=== PATIENT | male | born 1960 | race Caucasian/White ===

== ENCOUNTER 2018-01-22 07:17 | Inpatient (IN) | payer BC ==
[~2018-01-22] VITALS: Ht 182.9 cm; Wt 100.3 kg
[~2018-01-22 07:17] MED LIST: CARV25TA55 PO; ENAL2.5T PO; ERGO4000 XX; FURO40TA PO; GLIP-116 PO; METF-372 PO; POTA1TAB61 PO; SIMV10TA84 PO
[2018-01-22 08:09] LABS: Basophils # (auto) 0.1 uL; Eosinophils # (auto) 0.3 uL; Lymphocytes # (auto) 1.1 uL
[2018-01-22 08:11] LABS: Basophils % (auto) 1.2 % (0.0-2.0); Eosinophils % (auto) 4.3 % (0.0-7.0); Hematocrit 46.5 % (41.0-53.0); Lymphocytes % (auto) 15.9 % (10.0-50.0); Mean Corpuscular Hemoglobin 22.6 pg (28.0-32.0); Mean Corpuscular Hgb Conc. 32.2 g/dL (32.0-36.0); Mean Corpuscular Volume 70.3 fL (80.0-100.0); Monocytes # (auto) 0.6 uL; Neutrophils % (auto) 70.6 % (37.0-80.0); Nucleated Red Blood Cells % 0.1 %; Platelet Count (auto) 189 10^3/uL (140-450); Red Blood Cells 6.62 10^6/uL (4.5-5.90); Red Cell Distribution Width 16.6 % (11.8-14.3); White Blood Cell 7.1 10^3/uL (4.4-10.8)
[2018-01-22 08:35] LABS: Albumin 3.6 g/dL (3.4-5.0); BUN/Creatinine Ratio 18.6; Bilirubin, Total 0.6 mg/dL (0.2-1.0); Calcium 8.5 mg/dL (8.5-10.1); Potassium 4.1 mmol/L (3.5-5.1); Total Protein 7.6 g/dL (6.4-8.2)
[2018-01-22] MEDS ORDERED: PIPERACILLIN-TAZOB 3.375GM 100 ML IV ONE (09:15)
[2018-01-22] MEDS ORDERED: CARV25TA55 PO (09:19)
[2018-01-22] MEDS ORDERED: TICA90TA PO (09:38)
[2018-01-22] MEDS ORDERED: SUVO1TAB2 PO (09:41)
[2018-01-22] MEDS ORDERED: LORazepam 0.5 MG TAB PO PRN (11:15)
[2018-01-22] MEDS ORDERED: VANCOMYCIN 1GM/250ML 250 ML IV ONE (11:15)
[2018-01-22] MEDS ORDERED: PROMETHAZINE HCL 25 MG/ML 1ML IV PRN (11:15)
[2018-01-22] MEDS ORDERED: VANCOMYCIN PER PHARMACY 0 MG IV SCH (11:15)
[2018-01-22] MEDS ORDERED: ACETAMINOPHEN 500 MG TAB PO PRN (11:15)
[2018-01-22] MEDS ORDERED: NITROGLYCERIN 0.4 MG SL TAB SL PRN (11:15)
[2018-01-22] MEDS ORDERED: DEXTROSE (50%) 50ML SYRG IV PRN (11:15)
[2018-01-22] MEDS: ACCU-CHEK COMFORT CURVE STRIP VI SCH ×3 (11:24→22:19)
[2018-01-22] MEDS: InsuLIN REG 1unit/0.01ml Soln (100units/ml) SC SCH ×3 (12:07→22:00)
[2018-01-22 12:20] VITALS: BP 127/86
[2018-01-22] MEDS: HYDROcodone-ACET 5/325MG TAB PO PRN ×2 (12:42→20:59)
[2018-01-22] MEDS ORDERED: PIPERACILLIN-TAZOB 3.375GM 100 ML IV SCH (15:00)
[2018-01-22] MEDS: glipiZIDE 5 MG TAB PO SCH (17:05)
[2018-01-22 17:13] VITALS: BP 125/67
[2018-01-22 19:10] LABS: Alcohol, Urine < 3.0 mg/dL (0-5); Amphetamine Screen, Urine NEGATIVE (NEGATIVE); Barbiturate Scree,Urine NEGATIVE (NEGATIVE); Benzodiazephine Screen, Urine NEGATIVE (NEGATIVE); Cannabinoid Screen, Urine POSITIVE (NEGATIVE); Cocaine Screen, Urine NEGATIVE (NEGATIVE); Opiate Scree,Urine NEGATIVE (NEGATIVE); Phencyclidine Screen, Urine NEGATIVE (NEGATIVE)
[2018-01-22 19:24] LABS: Urine Bacteria NONE SEEN /hpf (None Seen); Urine Blood Negative /uL (Negative); Urine Mucus FEW (None Seen); Urine Specific Gravity 1.025 (1.001-1.035); Urine WBC 12 /hpf (0 - 3)
[2018-01-22] MEDS: VANCOMYCIN 1GM/250ML 250 ML IV SCH (20:59)
[2018-01-22 22:00] VITALS: BP 130/79
[2018-01-22] MEDS ORDERED: PATIENTS OWN MEDICATION (Simvastatin 10 MG) PO SCH (22:00)
[2018-01-22] MEDS ORDERED: PATIENTS OWN MEDICATION (Carvedilol 1 TAB) PO SCH (22:00)
[2018-01-22] MEDS ORDERED: PATIENTS OWN MEDICATION (Glipizide 10 MG) PO SCH (22:00)
[2018-01-22] MEDS ORDERED: TICAGRELOR PO SCH (22:00)
[2018-01-22] MEDS ORDERED: SUVOREXANT 10 MG PO SCH (22:00)
[2018-01-22] MEDS: TICAGRELOR 90 MG TAB PO SCH (22:18)
[2018-01-22] MEDS: CARVEDILOL 12.5 MG TAB PO SCH (22:19)
[2018-01-22] MEDS: PRAVASTATIN SODIUM 20 MG TAB PO SCH (22:19)
[2018-01-22] MEDS: PIPERACILLIN-TAZOB 3.375GM 100 ML IV SCH (22:46)
[2018-01-22] MEDS: TEMAZEPAM 15 MG CAP PO PRN (22:47)
[2018-01-23] MEDS: PIPERACILLIN-TAZOB 3.375GM 100 ML IV SCH ×4 (04:17→21:39)
[2018-01-23 05:00] VITALS: BP 112/81
[2018-01-23 06:12] LABS: BUN/Creatinine Ratio 19.3; Calcium 8.1 mg/dL (8.5-10.1); Potassium 4.1 mmol/L (3.5-5.1)
[2018-01-23] MEDS: VANCOMYCIN 1GM/250ML 250 ML IV SCH ×2 (06:51→17:33)
[2018-01-23] MEDS: glipiZIDE 5 MG TAB PO SCH ×2 (06:54→18:00)
[2018-01-23] MEDS: ACCU-CHEK COMFORT CURVE STRIP VI SCH ×4 (06:54→21:33)
[2018-01-23] MEDS: InsuLIN REG 1unit/0.01ml Soln (100units/ml) SC SCH ×4 (06:55→21:34)
[2018-01-23] MEDS: MORPHINE SULFATE 4 MG/ML SYR/VIAL IV PRN ×3 (08:42→22:34)
[2018-01-23 09:00] VITALS: BP 114/75
[2018-01-23] MEDS ORDERED: POTASSIUM CHL 10 Meq TABLET PO SCH (10:00)
[2018-01-23] MEDS ORDERED: PATIENTS OWN MEDICATION (Potassium Chloride (Klor-Con M10) 1 TAB) PO SCH (10:00)
[2018-01-23] MEDS: CARVEDILOL 12.5 MG TAB PO SCH ×2 (10:07→21:40)
[2018-01-23] MEDS: PANTOPRAZOLE 40 MG TAB PO SCH (10:07)
[2018-01-23] MEDS: TICAGRELOR 90 MG TAB PO SCH ×2 (10:07→22:33)
[2018-01-23 13:00] VITALS: BP 114/71
[2018-01-23] MEDS: HYDROcodone-ACET 5/325MG TAB PO PRN (14:45)
[2018-01-23 17:30] VITALS: BP 117/78
[2018-01-23 20:00] VITALS: BP 114/73
[2018-01-23] MEDS: PRAVASTATIN SODIUM 20 MG TAB PO SCH (21:40)
[2018-01-23 22:04] VITALS: BP 114/73
[2018-01-23] MEDS: TEMAZEPAM 15 MG CAP PO PRN (22:33)
[2018-01-24] MEDS: VANCOMYCIN 1GM/250ML 250 ML IV SCH ×2 (03:30→13:31)
[2018-01-24] MEDS: MORPHINE SULFATE 4 MG/ML SYR/VIAL IV PRN ×3 (03:34→22:13)
[2018-01-24] MEDS: PIPERACILLIN-TAZOB 3.375GM 100 ML IV SCH ×4 (04:29→21:57)
[2018-01-24 05:46] VITALS: BP 101/72
[2018-01-24 05:49] LABS: Basophils # (auto) 0.1 uL; Eosinophils # (auto) 0.3 uL; Monocytes # (auto) 0.6 uL; White Blood Cell 6.3 10^3/uL (4.4-10.8)
[2018-01-24 05:55] LABS: Basophils % (auto) 1.3 % (0.0-2.0); Eosinophils % (auto) 5.4 % (0.0-7.0); Hematocrit 42.5 % (41.0-53.0); Hemoglobin 13.7 g/dL (13.5-17.5); Lymphocytes # (auto) 1.4 uL; Lymphocytes % (auto) 21.5 % (10.0-50.0); Mean Corpuscular Hemoglobin 22.9 pg (28.0-32.0); Mean Corpuscular Hgb Conc. 32.3 g/dL (32.0-36.0); Mean Corpuscular Volume 70.9 fL (80.0-100.0); Neutrophils # (auto) 3.9 uL; Neutrophils % (auto) 61.8 % (37.0-80.0); Nucleated Red Blood Cells % 0.2 %; Platelet Count (auto) 160 10^3/uL (140-450); Red Cell Distribution Width 16.3 % (11.8-14.3)
[2018-01-24 06:00] LABS: BUN/Creatinine Ratio 19.8; Calcium 8.3 mg/dL (8.5-10.1); Potassium 4.5 mmol/L (3.5-5.1)
[2018-01-24] MEDS: glipiZIDE 5 MG TAB PO SCH ×2 (06:41→18:25)
[2018-01-24] MEDS: InsuLIN REG 1unit/0.01ml Soln (100units/ml) SC SCH ×4 (06:41→22:00)
[2018-01-24] MEDS: ACCU-CHEK COMFORT CURVE STRIP VI SCH ×4 (06:41→21:59)
[2018-01-24 08:10] VITALS: BP 108/72
[2018-01-24] MEDS: PANTOPRAZOLE 40 MG TAB PO SCH (09:58)
[2018-01-24] MEDS: CARVEDILOL 12.5 MG TAB PO SCH ×2 (10:00→21:59)
[2018-01-24 12:24] VITALS: BP 112/73
[2018-01-24] MEDS: TICAGRELOR 90 MG TAB PO SCH ×2 (12:26→21:59)
[2018-01-24] MEDS: POTASSIUM CHL 10 Meq TABLET PO SCH ×2 (13:29→21:58)
[2018-01-24] MEDS: FUROSEMIDE 20 MG TAB PO SCH ×2 (13:30→21:58)
[2018-01-24 16:15] VITALS: BP 123/79
[2018-01-24 20:00] VITALS: BP 111/74
[2018-01-24 21:30] VITALS: BP 111/74
[2018-01-24] MEDS: PRAVASTATIN SODIUM 20 MG TAB PO SCH (21:58)
[2018-01-24] MEDS: TEMAZEPAM 15 MG CAP PO PRN (22:45)
[2018-01-25] VITALS (7 sets, daily range): BP systolic 96–126; BP diastolic 51–79
[2018-01-25] MEDS: PIPERACILLIN-TAZOB 3.375GM 100 ML IV SCH ×4 (03:32→21:41)
[2018-01-25] MEDS ORDERED: VANCOMYCIN 1GM/250ML 250 ML IV ONE ×2 (05:08→06:00)
[2018-01-25] MEDS: ACCU-CHEK COMFORT CURVE STRIP VI SCH ×4 (06:31→21:41)
[2018-01-25] MEDS: glipiZIDE 5 MG TAB PO SCH ×2 (06:32→17:00)
[2018-01-25] MEDS: InsuLIN REG 1unit/0.01ml Soln (100units/ml) SC SCH ×4 (06:32→21:48)
[2018-01-25] MEDS: PANTOPRAZOLE 40 MG TAB PO SCH (09:44)
[2018-01-25] MEDS: CARVEDILOL 12.5 MG TAB PO SCH ×2 (09:44→21:41)
[2018-01-25] MEDS: POTASSIUM CHL 10 Meq TABLET PO SCH ×2 (09:44→21:39)
[2018-01-25] MEDS: FUROSEMIDE 20 MG TAB PO SCH ×2 (09:45→21:40)
[2018-01-25] MEDS: TICAGRELOR 90 MG TAB PO SCH ×2 (09:48→21:40)
[2018-01-25] MEDS ORDERED: FUROSEMIDE 20 MG TAB PO SCH (10:00)
[2018-01-25] MEDS ORDERED: POTASSIUM CHL 10 Meq TABLET PO SCH (10:00)
[2018-01-25] MEDS ORDERED: SACU1TAB PO (15:20)
[2018-01-25] MEDS: VANCOMYCIN 1GM/250ML 250 ML IV SCH (15:33)
[2018-01-25] MEDS: MORPHINE SULFATE 4 MG/ML SYR/VIAL IV PRN ×2 (15:43→22:09)
[2018-01-25] MEDS: PRAVASTATIN SODIUM 20 MG TAB PO SCH (21:39)
[2018-01-25] MEDS: TEMAZEPAM 15 MG CAP PO PRN (22:09)
[2018-01-26] MEDS: VANCOMYCIN 1GM/250ML 250 ML IV SCH ×2 (02:00→12:00)
[2018-01-26] MEDS: MORPHINE SULFATE 4 MG/ML SYR/VIAL IV PRN (03:52)
[2018-01-26] MEDS: PIPERACILLIN-TAZOB 3.375GM 100 ML IV SCH ×2 (03:52→09:22)
[2018-01-26 05:00] VITALS: BP 101/71
[2018-01-26] MEDS: glipiZIDE 5 MG TAB PO SCH (06:29)
[2018-01-26] MEDS: ACCU-CHEK COMFORT CURVE STRIP VI SCH ×2 (06:30→11:23)
[2018-01-26] MEDS: InsuLIN REG 1unit/0.01ml Soln (100units/ml) SC SCH ×2 (06:30→11:23)
[2018-01-26 07:23] LABS: BUN/Creatinine Ratio 22.3; Calcium 8.6 mg/dL (8.5-10.1); Potassium 4.1 mmol/L (3.5-5.1)
[2018-01-26 08:30] VITALS: BP 96/58
[2018-01-26 09:10] VITALS: BP 96/58
[2018-01-26] MEDS: PANTOPRAZOLE 40 MG TAB PO SCH (09:22)
[2018-01-26] MEDS: POTASSIUM CHL 10 Meq TABLET PO SCH (09:23)
[2018-01-26] MEDS: TICAGRELOR 90 MG TAB PO SCH (09:23)
[2018-01-26] MEDS: FUROSEMIDE 20 MG TAB PO SCH (10:00)
[2018-01-26] MEDS: CARVEDILOL 12.5 MG TAB PO SCH (10:00)
[2018-01-26 13:22] VITALS: BP 114/77
== END 2018-01-26 15:10 | disposition home or self-care (01) | DRG 314 ==
LOC: ER 07:17 → TELE 07:18 → TELE-WESTW 12:14
PROVIDERS: ADMIT Internal Medicine; ATTEND Internal Medicine
DX: T82.7XXA Infection and inflammatory reaction due to other cardiac and vascular devices, implants and grafts, initial encounter (principal); I50.21 Acute systolic (congestive) heart failure; L76.34 Postprocedural seroma of skin and subcutaneous tissue following other procedure; I42.0 Dilated cardiomyopathy; E78.5 Hyperlipidemia, unspecified; I11.0 Hypertensive heart disease with heart failure; Y83.1 Surgical operation with implant of artificial internal device as the cause of abnormal reaction of the patient, or of later complication, without mention of misadventure at the time of the procedure; Y71.3 Surgical instruments, materials and cardiovascular devices (including sutures) associated with adverse incidents; E11.65 Type 2 diabetes mellitus with hyperglycemia; I25.10 Atherosclerotic heart disease of native coronary artery without angina pectoris; Z82.49 Family history of ischemic heart disease and other diseases of the circulatory system; Z86.14 Personal history of Methicillin resistant Staphylococcus aureus infection; Z83.3 Family history of diabetes mellitus; Z88.8 Allergy status to other drugs, medicaments and biological substances; Z79.899 Other long term (current) drug therapy; Z79.84 Long term (current) use of oral hypoglycemic drugs; Z95.5 Presence of coronary angioplasty implant and graft; Z90.89 Acquired absence of other organs; Y92.89 Other specified places as the place of occurrence of the external cause
CPT/HCPCS: 36415; 71046; 80048; 80053; 80202; 80307; 81001; 82550; 82962; 83036; 83880; 84484; 85025; 85652; 87040; 87081; 87205; 93005; 96374; 96375; A6257; J1815; J2543